=== PATIENT | male | born 1995 | race African-American/Black ===

== ENCOUNTER 2024-06-01 10:23 | Emergency (ER) | payer OTHER ==
[~2024-06-01] VITALS: Ht 170.2 cm; Wt 90.3 kg
[2024-06-01 12:16] VITALS: BP 121/77; TEMP 97.1; O2SAT 98
== END 2024-06-01 12:19 | disposition home or self-care (01) ==
LOC: M ED 10:23
DX: S99.921A Unspecified injury of right foot, initial encounter (principal); X50.0XXA Overexertion from strenuous movement or load, initial encounter; Y92.9 Unspecified place or not applicable; Y93.B9 Activity, other involving muscle strengthening exercises; Y99.1 Military activity